=== PATIENT | female | born 1995 ===

== ENCOUNTER 2024-11-29 16:14 | Outpatient (CLI) | payer BC, SELFPAY ==
--- NOTE | ~2024-11-29 | XR_ITS ---
EXAMINATION: XR chest 2V, 11/29/2024 16:29 CDT HISTORY: Positive TB Test COMPARISON: No comparisons available. Technique: 2 views obtained. Findings: The lungs are clear, no effusion. No pneumothorax. Heart is normal size. Mediastinal and hilar contours are within normal limits. Bony thorax no acute abnormality. Impression: No acute cardiopulmonary abnormality. Reviewed, dictated and finalized at location P. Impression: No acute cardiopulmonary abnormality.
== END 2024-11-29 16:15 | disposition home or self-care (01) ==
DX: R76.12 Nonspecific reaction to cell mediated immunity measurement of gamma interferon antigen response without active tuberculosis (principal); Z11.7 Encounter for testing for latent tuberculosis infection
CPT/HCPCS: 71046